=== PATIENT | female | born 1995 | race Caucasian/White ===

== ENCOUNTER 2019-10-09 19:58 | Emergency (ER) | payer MEDICARE ==
[~2019-10-09] VITALS: Ht 160 cm; Wt 70.0 kg
[2019-10-09 22:58] VITALS: BP 124/72
== END 2019-10-09 23:55 | disposition home or self-care (01) ==
LOC: EMS 19:58
DX: S09.90XA Unspecified injury of head, initial encounter (principal); W22.8XXA Striking against or struck by other objects, initial encounter; Y93.89 Activity, other specified; Y92.89 Other specified places as the place of occurrence of the external cause; Y99.0 Civilian activity done for income or pay
CPT/HCPCS: 70450